=== PATIENT | male | born 1980 | race Two or more races ===

== ENCOUNTER 2016-04-10 10:02 | Inpatient (IN) | payer OTHER ==
[2016-04-10 10:06] VITALS: BMI 22.8
--- NOTE | 2016-04-10 12:43 | HP ---
COWS - Scale Resting Pulse: 0= UT 80 or Below Sweatin= Chills/Flushing Restless Observation: 3= Extraneous Movement Pupil Size: 2= Moderately Dilated Bone or Joint Aches: 4=Acute Joint/Muscle Pain Runny Nose/ Eye Tearin= Runny Nose/Eyes GI Upset > 30mins: 1= Stomach Cramp Tremor Observation: 1= Tremor [place], Not Seen Yawning Observation: 2= >3x During Session Anxiety or Irritability: 2=Irritable/Anxious Goose Flesh Skin: 0=Smooth Skin COWS Score: 18 Admission ROS S - HPI Chief Complaint: DETOX TX FOR OPIOID DEPENDENCE Allergies/Adverse Reactions: Allergies Allergy/AdvReac Type Severity Reaction Status Date / Time aspirin Allergy Severe Rash Verified 04/10/16 10:59 penicillin G Allergy Severe Rash Verified 04/10/16 10:59 History of Present Illness: 35 Y/O H/M WITH A HX OF HEROIN AND COCAINE DEPENDENCE SEEKING DETOX TX. PT STATES WAS AT [facility] ER TODAY FOR SKIN PROBLEM("ABCESS") BEFORE COMING TO DETOX. Exam Limitations: No Limitations - Ebola screening Have you traveled outside of the country in the last 21 days: No Have you had contact with anyone from an Ebola affected area: No Have you been sick,other than usual withdrawal symptoms: No Do you have a fever: No - Review of Systems Constitutional: Chills, Loss of Appetite, Night Sweats, Changes in sleep, Unintentional Wgt. Loss EENT: reports: Tearing, Nose Congestion Respiratory: reports: Shortness of Breath (HX ASTHMA), Wheezing Cardiac: reports: Lightheadedness GI: reports: Constipated, Diarrhea, Nausea, Poor Appetite, Poor Fluid Intake, Vomiting : reports: No Symptoms Reported Musculoskeletal: reports: Back Pain, Joint Pain, Muscle Pain Integumentary: reports: Bruising (LEFT ELBOW) Neuro: reports: Headache, Dizziness Endocrine: reports: No Symptoms Reported Hematology: reports: No Symptoms Reported Psychiatric: reports: Orientated x3, Anxious Other Systems: Reviewed and Negative Patient History - Patient Medical History Hx Anemia: No Hx Asthma: Yes (MDI) Hx Chronic Obstructive Pulmonary Disease (COPD): No Hx Cancer: No Hx Cardiac Disorders: No Hx Congestive Heart Failure: No Hx Hypertension: No Hx Hypercholesterolemia: No Hx Pacemaker: No HX Cerebrovascular Accident: No Hx Seizures: No Hx Dementia: No Hx Diabetes: No Hx Gastrointestinal Disorders: No Hx Genitourinary Disorders: No Hx Sexually Transmitted Disorders: No Hx Renal Disease (ESRD): No Hx Thyroid Disease: No Hx Human Immunodeficiency Virus (HIV): No (NEGATIVE HX) Hx Hepatitis C: Yes Hx Depression: No Hx Suicide Attempt: No (DENIES) Hx Bipolar Disorder: No Hx Schizophrenia: No - Patient Surgical History Past Surgical History: No Hx Neurologic Surgery: No Hx Cataract Extraction: No Hx Cardiac Surgery: No Hx Lung Surgery: No Hx Breast Surgery: No Hx Breast Biopsy: No Hx Abdominal Surgery: No Hx Appendectomy: No Hx Cholecystectomy: No Hx Genitourinary Surgery: No Hx Section: No Hx Orthopedic Surgery: No Anesthesia Reaction: No - PPD History Previous Implant?: Yes Documented Results: Negative w/o proof Implanted On Prior [facility] Admission?: Yes Date: 05/17/15 (SIGNED OUT AMA-NOT READ) PPD to be Administered?: Yes - Reproductive History Patient is a Female of Child Bearing Age (11 -55 yrs old): No (MALE) - Smoking Cessation Smoking history: Current every day smoker Have you smoked in the past 12 months: Yes Aproximately how many cigarettes per day: 20 Cigars Per Day: 0 Hx Chewing Tobacco Use: No Initiated information on smoking cessation: Yes 'Breaking Loose' booklet given: 04/10/16 - Substance & Tx. History Hx Alcohol Use: No (DENIES) Hx Substance Use: Yes (HEROIN/COCAINE) Substance Use Type: Cocaine, Heroin Hx Substance Use Treatment: Yes ([facility]) - Substances Abused Heroin Route: Injection Frequency: Daily Amount used: 10 bags Age of first use: 17 Date of Last Use: 04/09/16 Cocaine Route: Injection Frequency: Daily Amount used: $200 Age of first use: 17 Date of Last Use: 04/09/16 Family Disease History - Family Disease History Family Disease History: Diabetes: Grandparent (htn,asthma ), [place]: Grandparent, Respiratory: Grandparent Admission Physical Exam BHS - Vital Signs Vital Signs: Vital Signs - 24 hr 04/10/16 10:04 Temperature 97.3 F L Pulse Rate 63 Respiratory 18 Rate Blood Pressure 109/70 - Physical General Appearance: Yes: Moderate Distress, Irritable, Anxious HEENTM: Yes: EOMI, Normocephalic, TIM, Pharynx Normal, Nasal Congestion, Rhinorrhea Respiratory: Yes: Chest Non-Tender, Lungs Clear, Normal Breath Sounds, No Respiratory Distress Neck: Yes: Supple, Trachea in good position Breast: Yes: Breast Exam Deferred Cardiology: Yes: Regular Rhythm, Regular Rate, S1, S2 Abdominal: Yes: Normal Bowel Sounds, Non Tender, Flat, Soft Genitourinary: Yes: Other (N/C) Back: Yes: Within Normal Limits Musculoskeletal: Yes: full range of Motion, Gait Steady Extremities: Yes: Normal Range of Motion, Non-Tender Neurological: Yes: 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 intact, Fully Oriented, Alert, Motor Strength 5/5 Integumentary: Yes: Dry, Warm, Track Moon (LEFT ELBOW), Other (OPEN SKIN ON RIGHT THIGH AND HEALING ABCESS ON RIGHT POPLITEAL.) - Diagnostic (1) Asthma Current Visit: Yes Status: Chronic Qualifiers: Asthma severity: mild intermittent Asthma complication type: uncomplicated Qualified Code(s): J45.20 - Mild intermittent asthma, uncomplicated (2) Cocaine dependence, uncomplicated Current Visit: Yes Status: Acute (3) Hep C w/o coma, chronic Current Visit: No Status: Chronic (4) Nicotine dependence Current Visit: Yes Status: Chronic Qualifiers: Nicotine product type: cigarettes Substance use status: uncomplicated Qualified Code(s): F17.210 - Nicotine dependence, cigarettes, uncomplicated (5) Opioid dependence with withdrawal Current Visit: Yes Status: Acute (6) Abrasion of right thigh Current Visit: Yes Status: Acute Qualifiers: Encounter type: initial encounter Qualified Code(s): S70.311A - Abrasion, right thigh, initial encounter Cleared for Admission [facility] - Detox or Rehab [facility] Level of Care: Medically Managed Detox Regimen/Protocol: Methadone [facility] Breath Alcohol Content Breath Alcohol Content: 0 Urine Drug Screen - Results Drug Screen Negative: No Urine Drug Screen Results: VERONICA-Cocaine, OPI-Opiates, OXY-Oxycodone
[2016-04-10] MEDS ORDERED: MAG HYDROX/AL HYDROX/SIMETH 30 ML UNIT-DOSE CUP PO PRN (12:59)
[2016-04-10] MEDS ORDERED: LOPERAMIDE HCL 2 MG CAPSULE PO PRN (12:59)
[2016-04-10] MEDS ORDERED: guaiFENesin/D-METHORPHAN HB 10 ML UNIT-DOSE CUPS PO PRN (12:59)
[2016-04-10] MEDS ORDERED: P-EPHED 60MG/TRIPROLIDI 2.5MG TABLET PO PRN (12:59)
[2016-04-10] MEDS ORDERED: NICOTINE POLACRILEX 4 MG GUM BUC PRN (12:59)
[2016-04-10] MEDS ORDERED: MAGNESIUM CITRATE 300 ML BOTTLE PO PRN (12:59)
[2016-04-10] MEDS ORDERED: diphenhydrAMINE HCL 50 MG CAPSULE PO PRN (12:59)
[2016-04-10] MEDS ORDERED: hydrOXYzine PAMOATE 50 MG CAPSULE (FP) PO PRN (12:59)
[2016-04-10] MEDS ORDERED: MENTHOL/PHENOL 1 EACH UD MM PRN (12:59)
[2016-04-10] MEDS ORDERED: MAGNESIUM HYDROX 2400MG/30ML ORAL SUSPENSION 30 ML CUP PO PRN (12:59)
[2016-04-10] MEDS ORDERED: ACETAMINOPHEN 325 MG TABLET (FP) PO PRN (12:59)
[2016-04-10] MEDS ORDERED: ALBUTEROL SO4 6.7 GM HFA INHALER IH PRN (13:43)
[2016-04-10] MEDS ORDERED: METHADONE HCL 10 MG TABLET (FOR DETOX USE ONLY) PO ONE ×2 (13:56→23:00)
[2016-04-10] MEDS: diazePAM 5 MG TABLET PO PRN ×2 (14:31→22:22)
[2016-04-10] MEDS: BACITRACIN 0.9 GM PACKET TP SCH ×2 (14:31→22:27)
[2016-04-10] MEDS ORDERED: THIAMINE HCL 100 MG TABLET (FP) PO SCH (22:00)
[2016-04-11 03:25] LABS: URINE APPEARANCE SLCLOUDY; URINE BILIRUBIN NEGATIVE (NEGATIVE); URINE BLOOD NEGATIVE (NEGATIVE); URINE COLOR YELLOW; URINE GLUCOSE (UA) NEGATIVE (NEGATIVE); URINE KETONE NEGATIVE (NEGATIVE); URINE LEUK ESTERASE NEGATIVE (NEGATIVE); URINE NITRITE NEGATIVE (NEGATIVE); URINE PROTEIN NEGATIVE (NEGATIVE); URINE UROBILINOGEN NEGATIVE E.U./dl (0.2-1.0)
[2016-04-11] MEDS: diazePAM 5 MG TABLET PO PRN ×2 (05:59→10:12)
[2016-04-11 09:51] VITALS: BP 131/84; PULSE 75; TEMP 98
[2016-04-11] MEDS ORDERED: PRENATAL VITAMINS W/ FOLIC ACID TABLET (FP) PO SCH (10:00)
[2016-04-11] MEDS ORDERED: METHADONE HCL 10 MG TABLET (FOR DETOX USE ONLY) PO ONE (10:00)
[2016-04-11] MEDS ORDERED: NICOTINE 21 MG/24 HOURS TOPICAL PATCH TD SCH (10:00)
[2016-04-11] MEDS: BACITRACIN 0.9 GM PACKET TP SCH (10:12)
--- NOTE | 2016-04-11 10:19 | PN ---
BHS COWS - Scale Resting Pulse: 1= DC 81-100 Sweatin= Chills/Flushing Restless Observation: 3= Extraneous Movement Pupil Size: 2= Moderately Dilated Bone or Joint Aches: 2= Severe Diffuse Aches Runny Nose/ Eye Tearin= Nasal Congestion GI Upset > 30mins: 2= Nausea/Diarrhea Tremor Observation of Outstretched Hands: 2= Slight Tremor Visible Yawning Observation: 1= 1-2x During Session Anxiety or Irritability: 2=Irritable/Anxious Goose Flesh Skin: 0=Smooth Skin COWS Score: 17 BHS Progress Note (SOAP) Subjective: Anxiety, Restlessness, interrupted sleep, tremors, nausea Objective: Vital Signs Temperature 98.0 F 04/11/16 09:51 Pulse Rate 75 04/11/16 09:51 Respiratory Rate 20 04/11/16 09:51 Blood Pressure 131/84 04/11/16 09:51 O2 Sat by Pulse Oximetry (%) Laboratory Last Values Urine Color Yellow 04/10/16 16:06 Urine Appearance Slcloudy 04/10/16 16:06 Urine pH 6.0 (5.0-8.0) 04/10/16 16:06 Ur Specific [place] 1.025 (1.001-1.035) 04/10/16 16:06 Urine Protein Negative (NEGATIVE) 04/10/16 16:06 Urine Glucose (UA) Negative (NEGATIVE) 04/10/16 16:06 Urine Ketones Negative (NEGATIVE) 04/10/16 16:06 Urine Blood Negative (NEGATIVE) 04/10/16 16:06 Urine Nitrite Negative (NEGATIVE) 04/10/16 16:06 Urine Bilirubin Negative (NEGATIVE) 04/10/16 16:06 Urine Urobilinogen Negative E.U./dl (0.2-1.0) 04/10/16 16:06 Ur Leukocyte Esterase Negative (NEGATIVE) 04/10/16 16:06 labs and vitals noted Assessment: Withdrawal Symptoms Plan: Continue Detox Protocol
[2016-04-11 11:10] LABS: MCH 26.3 pg (25.7-33.7); MCHC 31.9 g/dl (32.0-35.9); MEAN CELL VOLUME 82.5 fl (80-96); MEAN PLT VOLUME 9.1 fl (7.5-11.1); PLATELET COUNT 220 K/MM3 (134-434); WHITE BLOOD COUNT 5.8 K/mm3 (4.0-10.0)
[2016-04-11 11:21] LABS: ALBUMIN 3.1 g/dl (3.4-5.0); ANION GAP 8 (8-16); CALCIUM 8.2 mg/dL (8.5-10.1); CO2 26 mmol/L (21-32); GLUCOSE,RANDOM 135 mg/dL (74-106)
[2016-04-11 11:25] LABS: ALK PHOS 119 U/L (45-117); BILIRUBIN,TOTAL 0.5 mg/dL (0.2-1.0); CREATININE 0.7 mg/dL (0.7-1.3); SGOT/AST 51 U/L (15-37); SGPT/ALT 45 U/L (12-78)
--- NOTE | 2016-04-11 13:41 | EKG ---
Test Reason : Blood Pressure : / mmHG Vent. Rate : 056 BPM Atrial Rate : 056 BPM P-R Int : 118 ms QRS Dur : 096 ms QT Int : 448 ms P-R-T Axes : 064 066 026 degrees QTc Int : 432 ms SINUS BRADYCARDIA NON-SPECIFIC INTRA-VENTRICULAR CONDUCTION DELAY NO PREVIOUS ECGS AVAILABLE Confirmed by MIROSLAVA GARDNER MD ([id number]) on 04/11/2016 1:40:59 PM Referred By: Sanjay Proctor Confirmed By:MIROSLAVA GARDNER MD
--- NOTE | 2016-04-11 14:01 | DS ---
[facility] Detox Discharge Summary Admission Date: 04/10/16 Discharge Date: 04/11/16 - History Present History: Cocaine Dependence, Opioid Dependence Pertinent Past History: Hep C Asthma - Physical Exam Results Vital Signs: Vital Signs Temperature 98.0 F 04/11/16 09:51 Pulse Rate 75 04/11/16 09:51 Respiratory Rate 20 04/11/16 09:51 Blood Pressure 131/84 04/11/16 09:51 O2 Sat by Pulse Oximetry (%) Laboratory Last Values WBC 5.8 K/mm3 (4.0-10.0) 04/11/16 06:20 RBC 4.65 M/mm3 (4.00-5.60) 04/11/16 06:20 Hgb 12.2 GM/dL (11.7-16.9) 04/11/16 06:20 Hct 38.4 % (35.4-49) 04/11/16 06:20 MCV 82.5 fl (80-96) 04/11/16 06:20 MCHC 31.9 g/dl (32.0-35.9) L 04/11/16 06:20 RDW 14.0 % (11.9-15.9) 04/11/16 06:20 Plt Count 220 K/MM3 (134-434) 04/11/16 06:20 MPV 9.1 fl (7.5-11.1) 04/11/16 06:20 Sodium 140 mmol/L (136-145) 04/11/16 06:20 Potassium 4.1 mmol/L (3.5-5.1) 04/11/16 06:20 Chloride 106 mmol/L (98-107) 04/11/16 06:20 Carbon Dioxide 26 mmol/L (21-32) 04/11/16 06:20 Anion Gap 8 (8-16) 04/11/16 06:20 BUN 15 mg/dL (7-18) 04/11/16 06:20 Creatinine 0.7 mg/dL (0.7-1.3) D 04/11/16 06:20 Creat Clearance w eGFR > 60 (>60) 04/11/16 06:20 Random Glucose 135 mg/dL (74-106) H D 04/11/16 06:20 Calcium 8.2 mg/dL (8.5-10.1) L 04/11/16 06:20 Total Bilirubin 0.5 mg/dL (0.2-1.0) D 04/11/16 06:20 AST 51 U/L (15-37) H D 04/11/16 06:20 ALT 45 U/L (12-78) 04/11/16 06:20 Alkaline Phosphatase 119 U/L (45-117) H 04/11/16 06:20 Total Protein 7.0 g/dl (6.4-8.2) 04/11/16 06:20 Albumin 3.1 g/dl (3.4-5.0) L 04/11/16 06:20 Urine Color Yellow 04/10/16 16:06 Urine Appearance Slcloudy 04/10/16 16:06 Urine pH 6.0 (5.0-8.0) 04/10/16 16:06 Ur Specific [place] 1.025 (1.001-1.035) 04/10/16 16:06 Urine Protein Negative (NEGATIVE) 04/10/16 16:06 Urine Glucose (UA) Negative (NEGATIVE) 04/10/16 16:06 Urine Ketones Negative (NEGATIVE) 04/10/16 16:06 Urine Blood Negative (NEGATIVE) 04/10/16 16:06 Urine Nitrite Negative (NEGATIVE) 04/10/16 16:06 Urine Bilirubin Negative (NEGATIVE) 04/10/16 16:06 Urine Urobilinogen Negative E.U./dl (0.2-1.0) 04/10/16 16:06 Ur Leukocyte Esterase Negative (NEGATIVE) 04/10/16 16:06 RPR Titer Nonreactive (NONREACTIVE) 04/11/16 06:20 labs noted - Medication Discharge Medications: Ambulatory Orders Albuterol Sulfate Inhaler - [Ventolin HFA Inhaler -] 2 inh PO Q4H PRN #1 inhaler 05/16/15 - Diagnosis (1) Abrasion of right thigh Status: Acute Qualifiers: Encounter type: initial encounter Qualified Code(s): S70.311A - Abrasion, right thigh, initial encounter (2) Cocaine dependence, uncomplicated Status: Acute (3) Opioid dependence with withdrawal Status: Acute (4) Asthma Status: Chronic Qualifiers: Asthma severity: mild intermittent Asthma complication type: uncomplicated Qualified Code(s): J45.20 - Mild intermittent asthma, uncomplicated (5) Nicotine dependence Status: Chronic Qualifiers: Nicotine product type: cigarettes Substance use status: uncomplicated Qualified Code(s): F17.210 - Nicotine dependence, cigarettes, uncomplicated (6) Hep C w/o coma, chronic Status: Chronic - AMA Did Patient Leave Against Medical Advice: Yes (Stable on discharge)
[2016-04-12] MEDS ORDERED: METHADONE HCL 5 MG TABLET (FOR DETOX USE ONLY) PO ONE (10:00)
[2016-04-13] MEDS ORDERED: METHADONE HCL 5 MG TABLET (FOR DETOX USE ONLY) PO ONE (10:00)
[2016-04-14] MEDS ORDERED: METHADONE HCL 10 MG TABLET (FOR DETOX USE ONLY) PO ONE (10:00)
[2016-04-15] MEDS ORDERED: METHADONE HCL 5 MG TABLET (FOR DETOX USE ONLY) PO ONE (06:00)
== END 2016-04-11 13:04 | disposition left against medical advice (07) | DRG 770 ==
LOC: YASAS 10:02 → Y3N 11:28
PROVIDERS: ADMIT Internal Medicine; ATTEND Internal Medicine
PROC: HZ2ZZZZ Detoxification Services for Substance Abuse Treatment (ICD-10-PCS; principal; 2016-04-11)
DX: F11.23 Opioid dependence with withdrawal (principal); F14.20 Cocaine dependence, uncomplicated; F17.210 Nicotine dependence, cigarettes, uncomplicated; J45.20 Mild intermittent asthma, uncomplicated; B18.2 Chronic viral hepatitis C; S70.311A Abrasion, right thigh, initial encounter; L02.415 Cutaneous abscess of right lower limb; X58.XXXA Exposure to other specified factors, initial encounter; Z59.0 Homelessness; Y92.9 Unspecified place or not applicable
CPT/HCPCS: 36415; 80053; 81003; 85027; 86593; 93005; 93010